=== PATIENT | female | born 1990 | race Caucasian/White ===

== ENCOUNTER 2023-02-09 02:04 | Emergency (ER) | payer SELFPAY ==
[2023-02-09] MEDS ORDERED: EPINEPHrine/PF 1 MG/1 ML (1:1,000) AMPULE ONE (02:08)
[2023-02-09] MEDS ORDERED: methylPREDNISolone NA SUCC 125 MG/2 ML VIAL IVPUSH ONE (02:11)
[2023-02-09] MEDS ORDERED: FAMOTIDINE 20 MG/50 ML IVPB 20 MG/50 ML MG IVPB ONE (02:11)
[2023-02-09] MEDS ORDERED: EPINEPHrine/PF 1 MG/1 ML (1:1,000) AMPULE IM ONE (02:11)
[2023-02-09 02:21] VITALS: RESP 18; TEMP 99.1; BMI 25.1
[2023-02-09 03:31] LABS: BASO % 0.5 % (0-2.0); EOS % 0.9 % (0-4.5); HEMATOCRIT 30.5 % (32.4-45.2); HEMOGLOBIN 10.3 GM/dL (10.7-15.3); LYMPH % 40.9 % (8-40); MCH 31.8 pg (25.7-33.7); MEAN CELL VOLUME 93.6 fl (80-96); MEAN PLT VOLUME 8.5 fl (7.5-11.1); MONO % 10.2 % (3.8-10.2); NEUT % 47.5 % (42.8-82.8); PLATELET COUNT 316 10^3/uL (134-434); RBC 3.25 M/mm3 (3.60-5.2); RDW 12.7 % (11.6-15.6); WHITE BLOOD COUNT 11.1 K/mm3 (4.0-10.0)
[2023-02-09 03:48] LABS: POTASSIUM 3.4 mmol/L (3.5-5.1)
[2023-02-09 03:50] LABS: CALCIUM 8.1 mg/dL (8.5-10.1)
[2023-02-09 03:51] LABS: ALBUMIN 3.2 g/dl (3.4-5.0); BLOOD UREA NITROGEN 11.6 mg/dL (7-18)
[2023-02-09 03:54] LABS: CREATININE 0.9 mg/dL (0.55-1.3)
[2023-02-09 03:56] LABS: BILIRUBIN,TOTAL 0.3 mg/dL (0.2-1); TOT PROT 6.5 g/dl (6.4-8.2)
[2023-02-09 06:24] VITALS: BP 98/54; PULSE 68
== END 2023-02-09 06:24 | disposition home or self-care (01) ==
LOC: JER 02:04
PROC: 3E033GC Introduction of Other Therapeutic Substance into Peripheral Vein, Percutaneous Approach (ICD-10-PCS; principal; 2023-02-09)
PROC: 3E033GC Introduction of Other Therapeutic Substance into Peripheral Vein, Percutaneous Approach (ICD-10-PCS; 2023-02-09)
PROC: 3E023GC Introduction of Other Therapeutic Substance into Muscle, Percutaneous Approach (ICD-10-PCS; 2023-02-09)
DX: R07.0 Pain in throat (principal); R13.10 Dysphagia, unspecified; K14.8 Other diseases of tongue; R11.10 Vomiting, unspecified; T78.3XXA Angioneurotic edema, initial encounter
CPT/HCPCS: 36415; 80053; 85025; 99284-25